=== PATIENT | male | born 1980 | race Caucasian/White ===

== ENCOUNTER 2025-03-16 14:15 | Emergency (ER) | payer SELFPAY ==
--- NOTE | ~2025-03-16 | XR_ITS ---
CHEST RADIOGRAPH CLINICAL HISTORY: leg swelling . COMPARISON: 07/27/2008 TECHNIQUE: Single portable view of the chest. FINDINGS The cardiomediastinal silhouette is unremarkable. The lungs are clear. IMPRESSION: No focal infiltrate or effusion. Reviewed, dictated and finalized at location A.
[2025-03-16 14:16] VITALS: BP 165/91; PULSE 100; RESP 16; TEMP 36.5; O2SAT 99
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
--- NOTE | 2025-03-16 14:25 | ECG_ITS ---
Test Date: 2025-03-16 14:32:55 Measurements Intervals [place] Rate: 92 P: 60 WA: 154 QRS: 42 QRSD: 89 T: 4 QT: 322 QTc: 399 Interpretive Statements SINUS RHYTHM VOLTAGE CRITERIA FOR LVH BASELINE ARTIFACT- III, AVR, AVL, AVF BORDERLINE ECG No previous ECG available for comparison Electronically Signed On 03-16-2025 14:46:36 CDT by Berry Rai D.O.
[2025-03-16 14:44] LABS: Hematocrit 43.8 % (40.0-54.0); Hemoglobin 14.0 g/dL (14.0-18.0); Mean Corpuscular HGB Conc 32.0 g/dL (32-36); Mean Corpuscular Hemoglobin 28.5 pg (27.0-31.0); Mean Corpuscular Volume 89.2 fL (78.0-102.0); Platelet Count Result 441 K/mm3 (150-420); Red Blood Count 4.91 M/mm3 (4.70-6.10); White Blood Count 7.5 K/mm3 (4.8-10.8)
[2025-03-16 14:57] LABS: Add Urine Microscopic? NO; Appearance Urine Clear (Clear); Glucose Urine UA Negative (Negative); Leukocyte Esterase Ur Negative LEU/UL (Negative); Nitrate Urine Negative (Negative); Specific Grav Ur 1.020 (1.010-1.020)
--- OUTSIDE RECORDS SUMMARY | 2025-03-16 15:02 | XMS_ITS | Clinical Summary ---
Author Organization [facility] Address [address] [place] [address] Care Team Providers Care Coning Machine Operator Name Role Phone Unavailable Primary Care Provider Unavailabl e Source Comments [facility],non-owned Affiliates and Associated Physician Practices is amultiple site organization consisting of ambulatory clinics and hospital sitesin [place], [place], [place] and [place]. This disclosure is being madepursuant to the Care Everywhere program and may not contain all information available regarding this patient. Last updated 18.[facility] Allergies No known active allergies Medications * Be aware that medications may not be up to date on this document. Alwaysverify current medications with the patient. naproxen (NAPROSYN) 500 MG tablet Take 1 tablet by mouth 2 times daily 60 tablet 8 Active HYDROcodone-ac etaminophen (NORCO) 5-325 MG tablet Take 1 tablet by mouth every 4 hours as needed for Pain Do not exceed 3 grams of acetaminophen (TYLENOL) daily. 9 tablet 8 Active Social History Tobacco Use Types Packs/Day Years Used Date Smoking Tobacco: Every Day Cigarettes Alcohol Use Standard Drinks/Week Comments No 0 (1 standard drink = 0.6 oz pur e alcohol) Sex and Gender Information Value Date Recorded Sex Assigned at Not on file Legal Sex Male 4:36 PM CDT Gender Identity Not on file Sexual Orientation Not on file Last Filed Vital Signs Vital Sign Reading Time Taken Comments Blood Pressure 153/79 03/30/2018 6:31 PM CDT Pulse 106 03/30/2018 6:46 PM CDT Temperature 36.8 C (98.2 F) 03/30/2018 4:40 PM CDT Respiratory Rate 23 03/30/2018 6:46 PM CDT Oxygen Saturation 99% 03/30/2018 6:46 PM CDT Inhaled Oxygen Concentration - - Weight 86.2 kg (190 lb) 03/30/2018 4:40 PM CDT Height 167.6 cm (5' 6) 03/30/2018 4:40 PM CDT Body Mass Index 30.67 03/30/2018 4:40 PM CDT Plan of Treatment Health Maintenance Due Date Last Done Comments LIPID TESTING 1981 HIV SCREENING 1996 HEPATITIS C SCREENING 07/28/1999 DTAP/TDAP/TD VACCINES (1 - Tdap) 2000 HEPATITIS B VACCINE (1 of 3 - 19+ 3-dose series) 2000 HPV VACCINE (1 - 3-dose SCDM series) 2008 COVID-19 VACCINE (1 - 2023-2 5 season) 2024 DEPRESSION SCREENING 08/12/2024 INFLUENZA VACCINE (#1) 2025 ZOSTER VACCINE (1 of 2) 2031 HIB VACCINE Aged Out No longer eligi ble based on patient's age to complete this topic MENINGOCOCCAL (Group B) VACC INE SHARED DECISION-MAKING Aged Out No longer eligibl e based on patient's age to complete this topic MENINGOCOCCAL GROUPS A/C/Y/W VACCINE Aged Out No longer eligible b ased on patient's age to complete this topic PNEUMOCOCCAL VACCINE Aged Out No long er eligible based on patient's age to complete this topic Insurance MEDICAID AETNA [facility] [place]
--- OUTSIDE RECORDS SUMMARY | 2025-03-16 15:02 | XMS_ITS | Clinical Summary ---
Author Organization [facility] Address [facility] [place] [address] Care Team Providers Care Flexographic Printing Press Operator Name Role Phone None, Provider MD Primary Care Provider Unavaila ble Allergies No known active allergies Medications No known medications Social History Tobacco Use Types Packs/Day Years Used Date Smoking Tobacco: Former Smokeless Tobacco: Current Alcohol Use Standard Drinks/Week Comments Never 0 (1 standard drink = 0.6 oz pur e alcohol) Sex and Gender Information Value Date Recorded Sex Assigned at Not on file Legal Sex Male 5:51 PM CLASSICS PROFESSOR Gender Identity Not on file Sexual Orientation Not on file Last Filed Vital Signs Vital Sign Reading Time Taken Comments Blood Pressure 160/86 10/17/2023 6:43 PM CLASSICS PROFESSOR Pulse 94 10/17/2023 6:43 PM CLASSICS PROFESSOR Temperature 36.5 C (97.7 F) 10/17/2023 6:43 PM CLASSICS PROFESSOR Respiratory Rate 16 10/17/2023 6:43 PM CLASSICS PROFESSOR Oxygen Saturation 100% 10/17/2023 6:43 PM CLASSICS PROFESSOR Inhaled Oxygen Concentration - - Weight 102.1 kg (225 lb) 10/17/2023 6:43 PM CLASSICS PROFESSOR Height 167.6 cm (5' 6) 10/17/2023 6:43 PM CLASSICS PROFESSOR Body Mass Index 36.32 10/17/2023 6:43 PM CLASSICS PROFESSOR Plan of Treatment Health Maintenance Due Date Last Done Comments Annual Physical 1984 DTaP, Tdap and Td Vaccines (6 - Tdap) 03/20/1996 03/19/1996, 05/19/1986, 05/30/1983, Additional history exists Hepatitis C 1999 HPV Vaccines (1 - 3-dose SCDM series) 2008 COVID-19 Vaccine ( season) 2024 Hepatitis B Vaccines Completed 02/03/1997, 09/30/1996, 08/19/1996 Meningococcal B Vaccine Aged Out No l onger eligible based on patient's age to complete this topic Meningococcal Vaccine Aged Out No jimmy frederick eligible based on patient's age to complete this topic Pneumococcal Vaccine: Pediatrics (0 to 5 Years) and At-Risk Patients (6 to 49 Years) Aged Out No longer eligible based on patient's age to complete this topic RSV Immunizations Under 20 Months Aged Out No longer eligible based on patient's age to complete this topic Care Teams Flexographic Printing Press Operator Relationship Specialty Start Date End Date None, Provider, PCP - General 10/05/19
--- OUTSIDE RECORDS SUMMARY | 2025-03-16 15:02 | XMS_ITS | Encounter Summary ---
Author Organization [facility] Address [facility] [place] [address] Care Team Providers Care Volunteer Services Director Name Role Phone None, Provider Primary Care Provider Jaleesa ble Encounter Details Date Type Department Care Team (Late st Contact Info) Description 01/17/2019 Abstract SFL CONVERSION [address] [place] [address] , Generic Conversion, Social History Tobacco Use Types Packs/Day Years Used Date Smoking Tobacco: Never Assessed Sex and Gender Information Value Date Recorded Sex Assigned at Not on file Legal Sex Male 5:51 PM PROJECTION ENGINEER Gender Identity Not on file Sexual Orientation Not on file documented as of this encounter Plan of Treatment Not on file documented as of this encounter Visit Diagnoses Not on filedocumented in this encounter Care Teams Volunteer Services Director Relationship Specialty Start Date End Date None, Provider, PCP - General 10/05/19 documented as of this encounter
[2025-03-16 15:14] LABS: INR 0.9; Partial Thromboplastin Time 28.5 Sec (23.9-30.70); Prothrombin Time 10.1 Seconds (9.50-12.1)
[2025-03-16 15:15] VITALS: BP 146/88; PULSE 69; RESP 18; O2SAT 97
[2025-03-16 15:15] LABS: Total Cells Counted 100
[2025-03-16 15:16] LABS: Band Neutrophils Percent 0 % (0-6); Basophils Absolute Manual 0.00 K/mm3 (0-0.1); Basophils Percent Manual 0 % (0-1); Eosinophils Absolute Manual 0.07 K/mm3 (0.02-0.50); Eosinophils Percent Manual 1 % (1-6); Lymphocytes Absolute Manual 2.10 K/mm3 (1.1-4.5); Lymphocytes Percent Manual 28 % (18-44); Monocytes Absolute Manual 1.12 K/mm3 (0.1-0.90); Monocytes Percent Manual 15 % (3-9); Neutrophils Absolute Manual 4.20 K/mm3 (1.3-6.7); Neutrophils Percent Manual 56 % (46-73)
[2025-03-16 15:44] LABS: Alanine Aminotransferase 47 U/L (6-50); Albumin Level 4.1 g/dL (3.5-5.1); Alkaline Phosphatase 83 U/L (38-126); Anion Gap 4 mmol/L (4-12); Aspartate Amino Transferase 38 U/L (17-59); Bilirubin,Total 0.3 mg/dL (0.2-1.3); Blood Urea Nitrogen 8 mg/dL (9-20); Calcium 9.1 mg/dL (8.4-10.2); Carbon Dioxide 29 mmol/L (22-30); Chloride 102 mmol/L (98-107); Estimated CRCL calculation 119 ml/min; Estimated Glomerular Filt Rate > 60; Glucose 109 mg/dL (65-110); Osmolality Calculated 279 mOsm/kg (285-295); Potassium 4.4 mmol/L (3.4-5.0); Sodium 135 mmol/L (137-145); Total Protein 6.9 g/dL (6.3-8.2)
[2025-03-16 16:15] VITALS: BP 141/70; PULSE 74; RESP 16; TEMP 36.8; O2SAT 98
[2025-03-16] MEDS: APIXABAN 2.5 MG TABLET 10 MG PO (16:15)
[2025-03-17 07:54] LABS: NT Pro B Type Natriuretic Pept 61 pg/mL (19.9-100)
== END 2025-03-16 16:25 | disposition home or self-care (01) ==
PROVIDERS: Emergency Provider Emergency Medicine
DX: T24.001A Burn of unspecified degree of unspecified site of right lower limb, except ankle and foot, initial encounter (principal); T31.0 Burns involving less than 10% of body surface; B96.89 Other specified bacterial agents as the cause of diseases classified elsewhere; X17.XXXA Contact with hot engines, machinery and tools, initial encounter
CPT/HCPCS: 36415; 71045; 80053; 81003; 83880; 85025; 85380; 85610; 85730; 93005; 99283; A9270

== ENCOUNTER 2025-03-17 07:07 | Outpatient (CLI) | payer SELFPAY ==
--- NOTE | ~2025-03-17 | US_ITS ---
EXAMINATION:US venous doppler LE RT INDICATION:Right calf swelling and redness TECHNIQUE: Multiple grayscale, color flow and Doppler images of the right lower extremity deep venous systems were obtained and reviewed. COMPARISON:No prior studies for comparison. FINDINGS: The common femoral, superficial femoral and popliteal veins demonstrate normal respiratory variation, augmentation and compressibility. Color flow is also seen within the posterior tibial, pe roneal, greater saphenous and profunda veins. IMPRESSION: 1: No lower extremity deep venous thrombosis. Reviewed, dictated and finalized at location A.
--- OUTSIDE RECORDS SUMMARY | 2025-03-17 07:12 | XMS_ITS | Clinical Summary ---
Author Organization [facility] Address [facility] [place] [address] Care Team Providers Care Explosive Operator Supervisor Name Role Phone None, Provider MD Primary [...] on file Legal Sex Male 5:51 PM CUTTING AND BONING SUPERVISOR Gender Identity Not on file Sexual Orientation Not on file Last Filed Vital Signs Vital Sign Reading Time Taken Comments Blood Pressure 160/86 10/17/2023 6:43 PM CUTTING AND BONING SUPERVISOR Pulse 94 10/17/2023 6:43 PM CUTTING AND BONING SUPERVISOR Temperature 36.5 C (97.7 F) 10/17/2023 6:43 PM CUTTING AND BONING SUPERVISOR Respiratory Rate 16 10/17/2023 6:43 PM CUTTING AND BONING SUPERVISOR Oxygen Saturation 100% 10/17/2023 6:43 PM CUTTING AND BONING SUPERVISOR Inhaled Oxygen Concentration - - Weight 102.1 kg (225 lb) 10/17/2023 6:43 PM CUTTING AND BONING SUPERVISOR Height 167.6 cm (5' 6) 10/17/2023 6:43 PM CUTTING AND BONING SUPERVISOR Body Mass Index 36.32 10/17/2023 6:43 PM CUTTING AND BONING SUPERVISOR Plan of Treatment Health Maintenance Due Date [...] age to complete this topic Care Teams Explosive Operator Supervisor Relationship Specialty Start Date End Date None, Provider, PCP - General 10/05/19
--- OUTSIDE RECORDS SUMMARY | 2025-03-17 07:12 | XMS_ITS | Encounter Summary ---
Author Organization [facility] Address [facility] [place] [address] Care Team Providers Care County Home Demonstrator Name Role Phone None, Provider Primary Care Provider Jaleesa ble Encounter Details Date Type Department Care Team (Late st Contact Info) Description 01/17/2019 Abstract SFL CONVERSION [address] [place] [address] , Generic Conversion, Social History Tobacco Use Types Packs/Day Years Used Date Smoking Tobacco: Never Assessed Sex and Gender Information Value Date Recorded Sex Assigned at Not on file Legal Sex Male 5:51 PM SECURITIES VAULT SUPERVISOR Gender Identity Not on file Sexual Orientation Not on file documented as of this encounter Plan of Treatment Not on file documented as of this encounter Visit Diagnoses Not on filedocumented in this encounter Care Teams County Home Demonstrator Relationship Specialty Start Date End Date None, Provider, PCP - General 10/05/19 documented as of this encounter
--- OUTSIDE RECORDS SUMMARY | 2025-03-17 07:13 | XMS_ITS | Clinical Summary ---
Author Organization [facility] Address [address] [place] [address] Care Team Providers Care Last Inserter Name Role Phone Unavailable Primary Care Provider Unavailabl e Source Comments [facility],non-owned Affiliates and Associated Physician Practices is amultiple site organization consisting of ambulatory clinics and hospital sitesin [place], [place], [place] and [place]. This disclosure is being madepursuant to the Care Everywhere program and may not contain all information available regarding this patient. Last updated 18.[facility] Allergies No known active allergies Medications * [...] to complete this topic Insurance MEDICAID AETNA [facility] [place]
== END 2025-03-17 07:08 | disposition home or self-care (01) ==
LOC: CHSIMG 07:10
PROVIDERS: Visit Provider Emergency Medicine
DX: M79.89 Other specified soft tissue disorders (principal)
CPT/HCPCS: 93971